=== PATIENT | female | born 1950 | race Caucasian/White ===

== ENCOUNTER → 2017-03-29 | Outpatient (CLI) | payer MEDICARE ==
--- NOTE | 2017-03-29 11:45 | MM ---
Reason for exam: screening (asymptomatic). Last mammogram was performed 1 year and 1 month ago. History: Patient is postmenopausal and is nulliparous. Family history of premenopausal breast cancer in sister at age 40 and breast cancer in maternal aunt at age 70. Took estrogen for 5 years. Took progesterone for 5 years. Taking other hormone for 8 years. Physical Findings: A clinical breast exam by your physician is recommended on an annual basis and results should be correlated with mammographic findings. MG Screening Mammo w CAD Bilateral CC and MLO view(s) were taken. Prior study comparison: March 09, 2016, bilateral MG screening mammo w CAD. February 26, 2014, bilateral MG screening mammo w CAD. The breast tissue is heterogeneously dense. This may lower the sensitivity of mammography. There is no discrete abnormality. ASSESSMENT: Negative, BI-RAD 1 RECOMMENDATION: Routine screening mammogram of both breasts in 1 year.
== END | disposition home or self-care (01) ==
LOC: RADMAMWWP 07:26
PROVIDERS: ATTEND Family Medicine
DX: Z12.31 Encounter for screening mammogram for malignant neoplasm of breast (principal)

== ENCOUNTER → 2017-07-17 | Outpatient (CLI) | payer MEDICARE ==
--- NOTE | 2017-07-17 09:11 | XR ---
EXAMINATION TYPE: XR chest 2V DATE OF EXAM: 07/17/2017 COMPARISON: NONE HISTORY: Shortness of breath TECHNIQUE: Frontal and lateral views of the chest are obtained. FINDINGS: Scattered senescent parenchymal changes noted. Small granuloma right lower lobe. No evidence for infiltrate. No evidence for atelectasis. Heart size is stable. Mediastinal structures are stable and grossly unremarkable. No evidence for hilar prominence. Degenerative changes dorsal spine. IMPRESSION: 1. No evidence for acute pulmonary disease.
== END | disposition home or self-care (01) ==
LOC: RADXRMAIN 08:47
PROVIDERS: ATTEND Family Medicine
DX: R63.4 Abnormal weight loss (principal)
CPT/HCPCS: 71020

== ENCOUNTER → 2018-03-23 | Outpatient (CLI) | payer MEDICARE ==
--- NOTE | 2018-03-23 10:37 | XR ---
EXAMINATION TYPE: XR lumbosacral spine min 4V DATE OF EXAM: 03/23/2018 COMPARISON: NONE HISTORY: Low back pain TECHNIQUE: Five-view lumbar spine FINDINGS: Scoliosis is present with a convexity to the right. Degenerative disc changes are present e specially L2-L3. Facet degenerative changes are present bilaterally. There is some additional disc sp noel narrowing L4-5. IMPRESSION: 1. Degenerative disc changes and scoliosis. 2. Milder facet degenerative changes.
== END | disposition home or self-care (01) ==
LOC: RADXRMAIN 09:33
PROVIDERS: ATTEND Family Medicine
DX: M47.816 Spondylosis without myelopathy or radiculopathy, lumbar region (principal); M41.9 Scoliosis, unspecified
CPT/HCPCS: 72110

== ENCOUNTER → 2018-05-02 | Outpatient (CLI) | payer MEDICARE ==
--- NOTE | 2018-05-03 10:23 | MM ---
Reason for exam: screening (asymptomatic). Last mammogram was performed 1 year and 1 month ago. History: Patient is postmenopausal and is nulliparous. Family history of premenopausal breast cancer in sister at age 40 and breast cancer in maternal aunt at age 70. Took estrogen for 5 years. Took progesterone for 5 years. Taking other hormone for 8 years. Physical Findings: A clinical breast exam by your physician is recommended on an annual basis and results should be correlated with mammographic findings. MG Screening Mammo w CAD Bilateral CC and MLO view(s) were taken. Prior study comparison: March 29, 2017, bilateral MG screening mammo w CAD. March 09, 2016, bilateral MG screening mammo w CAD. There are scattered fibroglandular densities. No suspicious abnormality. No significant changes when compared with prior studies. ASSESSMENT: Negative, BI-RAD 1 RECOMMENDATION: Routine screening mammogram of both breasts in 1 year.
== END | disposition home or self-care (01) ==
LOC: RADMAMWWP 06:53
PROVIDERS: ATTEND Family Medicine
DX: Z12.31 Encounter for screening mammogram for malignant neoplasm of breast (principal)
CPT/HCPCS: 77067

== ENCOUNTER 2018-07-26 17:06 | Emergency (ER) | payer MEDICARE ==
[2018-07-26] MEDS ORDERED: MORPHINE SULFATE 4 MG/ML SYRINGE IVP PRN (17:36)
[2018-07-26] MEDS ORDERED: PROPOFOL 10 MG/ML 20 ML VIAL IV STA (17:39)
--- NOTE | 2018-07-26 17:39 | ED ---
General Adult HPI - General Chief complaint: Extremity Injury, Lower Stated complaint: Hip pain Source: EMS Mode of arrival: EMS Limitations: physical limitation - History of Present Illness Initial comments: Dictation was produced using [employer] dictation software. please excuse any grammatical, word or spelling errors. Chief Complaint: 68-year-old female with past medical history of bilateral total hip replacements presents with concern for right hip dislocation. History of Present Illness: Patient states she has had multiple hip dislocations in the past. She has bilateral hip total replacement done at [facility]. This is allegedly her fifth time dislocating her hip. She is in such therapist earlier today when such therapist put her leg in extreme flexion. She then felt a clunk. She was brought here for further care. Patient denies any constitutional symptoms. ROS negative. Denies any neuro deficits to the right lower extremity. + Patient had her hip reduced propofol was used. Patient has no ALLERGIES to sedation medications. The ROS documented in this emergency department record has been reviewed and confirmed by me. Those systems with pertinent positive or negative responses have been documented in the HPI. All other systems are other negative and/or noncontributory. - Related Data Home Medications Medication Instructions Recorded Confirmed Ibuprofen [Motrin Ib] 400 mg PO Q6HR PRN 07/26/18 07/26/18 Multivitamins, Thera [Multivitamin 1 tab PO DAILY 07/26/18 07/26/18 (formulary)] Thyroid,Pork [Nature-Throid] 32.5 mg PO DAILY 07/26/18 07/26/18 Previous Rx's Medication Instructions Recorded Hydrocodone/Acetaminophen [Meigs 1 tab PO Q6HR PRN 3 Days #12 tab 07/26/18 5-325] Allergies Allergy/AdvReac Type Severity Reaction Status Date / Time No Known Allergies Allergy Verified 07/26/18 17:31 Review of Systems ROS Statement: Those systems with pertinent positive or pertinent negative responses have been documented in the HPI. ROS Other: All systems not noted in ROS Statement are negative. Past Medical History Past Medical History: Thyroid Disorder Additional Past Medical History / Comment(s): congential hip displaysia History of Any Multi-Drug Resistant Organisms: None Reported Additional Past Surgical History / Comment(s): thyroid removal, both hip replacement Past Psychological History: No Psychological Hx Reported Smoking Status: Never smoker Past Alcohol Use History: None Reported Past Drug Use History: None Reported General Exam - General Exam Comments Initial Comments: PHYSICAL EXAM: General Impression: Alert and oriented x3, not in acute distress HEENT: Normocephalic atraumatic, extra-ocular movements intact, pupils equal and reactive to light bilaterally, mucous membranes moist. Cardiovascular: Heart regular rate and rhythm, S1&S2 audible, no murmurs, rubs or gallops Chest: Lungs clear to auscultation bilaterally, no rhonchi, no wheeze, no rales Abdomen: Bowel sounds present, abdomen soft, non-tender, non-distended, no organomegaly Musculoskeletal: Pulses present and equal in all extremities, no peripheral edema, shortened externally rotated right lower extremity. Motor: Power 5/5 bilaterally, no focal deficits noted Neurological: CN II-XII grossly intact, no focal motor or sensory deficits noted Skin: Intact with no visualized rashes Psych: Normal affect and mood Limitations: physical limitation Course Vital Signs 07/26/18 07/26/18 07/26/18 17:07 18:56 18:59 Temperature 97.9 F Pulse Rate 92 80 89 Respiratory 18 18 19 Rate Blood Pressure 130/77 136/84 138/89 O2 Sat by Pulse 97 96 100 Oximetry 07/26/18 19:02 Temperature Pulse Rate 77 Respiratory 20 Rate Blood Pressure 139/83 O2 Sat by Pulse 97 Oximetry Procedures - Orthopedic Joint Reduction Joint #1 Consent Obtained: written consent Time Out Performed: Yes Side: right Joint Reduction Location: hip Analgesia: procedural sedation Shoulder Technique Used (if applicable): other (captain parson) Post-Reduction Neuro Exam: intact Post-Reduction Vascular Exam: intact Post Reduction X-Ray Obtained: Yes Post Reduction X-Ray Results: reduced Splint Applied: Yes Patient Tolerated Procedure: well - Procedural Sedation Procedural Sedation Start Time: 18:59 Procedural Sedation Stop Time: 19:10 Indications: fracture/dislocation reduction ASA Class: I Mallampati Airway Score: 1 Preparation: monitor worker applied, pulse oximeter, capnometry used, supplemental O2 applied, suction/airway equipment at bedside, IV secured IV Propofol Dose (mgs): 100 Complications: hypoventilation Interventions: oxygen applied, airway repositioned, assist by BVM Patient Tolerated Procedure: well Medical Decision Making - Medical Decision Making ED course: 68-year-old failed presents with clinical presentation suspicious for right hip dislocation. All signs upon arrival are within acceptable limits. Patient has recurrent hip dislocations. Prereduction film shows posterior dislocation of surgical hip. Full consent performed for dislocation reduction. Patient has had propofol in the past per she is Mallampati 1. No adverse reactions in the past to sedate of medications. Successful reduction was performed at bedside. Postreduction films were intact. Shows successful reduction. Patient recently immobilized. She is warned of certain movements to avoid. Told not to flex the hip more than 90. Told not to cross her legs or internally rotate that right lower extremity. Patient has a walker at home. She is told to be toe-touch weightbearing. Advised follow-up with her with a surgeon as soon as possible. Patient understandable agreeable to plan. Patient states that she'll be just fine. I bedside. Patient will follow up with orthopedic surgeon tomorrow. Patient understandable agreeable to disposition. - Lab Data Result diagrams: 07/26/18 17:40 07/26/18 17:40 Lab Results 07/26/18 07/26/18 Range/Units 17:40 17:40 WBC 9.6 (3.8-10.6) k/uL RBC 4.32 (3.80-5.40) m/uL Hgb 13.8 (11.4-16.0) gm/dL Hct 40.2 (34.0-46.0) % MCV 93.0 (80.0-100.0) fL MCH 32.0 (25.0-35.0) pg MCHC 34.4 (31.0-37.0) g/dL RDW 12.8 (11.5-15.5) % Plt Count 225 (150-450) k/uL Neutrophils % 79 % Lymphocytes % 14 % Monocytes % 5 % Eosinophils % 1 % Basophils % 0 % Neutrophils # 7.5 (1.3-7.7) k/uL Lymphocytes # 1.4 (1.0-4.8) k/uL Monocytes # 0.5 (0-1.0) k/uL Eosinophils # 0.1 (0-0.7) k/uL Basophils # 0.0 (0-0.2) k/uL Sodium 138 (137-145) mmol/L Potassium 3.7 (3.5-5.1) mmol/L Chloride 104 (98-107) mmol/L Carbon Dioxide 25 (22-30) mmol/L Anion Gap 9 mmol/L BUN 23 H (7-17) mg/dL Creatinine 0.70 (0.52-1.04) mg/dL Est GFR (CKD-EPI)AfAm >90 (>60 ml/min/1.73 sqM) Est GFR (CKD-EPI)NonAf 88 (>60 ml/min/1.73 sqM) Glucose 115 H (74-99) mg/dL Calcium 9.1 (8.4-10.2) mg/dL Disposition Clinical Impression: Dislocation of hip prosthesis Disposition: HOME SELF-CARE Condition: Good Instructions: Hip Dislocation (ED) Prescriptions: Hydrocodone/Acetaminophen [Meigs 5-325] 1 tab PO Q6HR PRN 3 Days #12 tab PRN Reason: Pain Is patient prescribed a controlled substance at d/c from ED?: Yes If prescribed controlled substance>3 days was MAPS reviewed?: Prescribed <3 Days Referrals: Dilip Neil DO [Primary Care Provider] - 1-2 days Time of Disposition: 19:58
[2018-07-26 17:59] LABS: Basophils % (A) 0 %; Eosinophils # (A) 0.1 k/uL (0-0.7); Eosinophils % (A) 1 %; HCT 40.2 % (34.0-46.0); HGB 13.8 gm/dL (11.4-16.0); Lymphocytes # (A) 1.4 k/uL (1.0-4.8); Lymphocytes % (A) 14 %; MCHC 34.4 g/dL (31.0-37.0); Mean Platelet Volume 6.7; Monocytes # (A) 0.5 k/uL (0-1.0); Monocytes % (A) 5 %; Neutrophils # (A) 7.5 k/uL (1.3-7.7); Neutrophils % (A) 79 %; Platelet Count 225 k/uL (150-450); RBC 4.32 m/uL (3.80-5.40); RDW 12.8 % (11.5-15.5); WBC 9.6 k/uL (3.8-10.6)
[2018-07-26] MEDS ORDERED: fentaNYL (PF) 50 MCG/ML 2 ML AMP IVP STA (18:06)
[2018-07-26 18:17] LABS: Anion Gap 9 mmol/L; Blood Urea Nitrogen 23 mg/dL (7-17); Calcium 9.1 mg/dL (8.4-10.2); Carbon Dioxide 25 mmol/L (22-30); Chloride 104 mmol/L (98-107); Glucose 115 mg/dL (74-99); Potassium 3.7 mmol/L (3.5-5.1); Sodium 138 mmol/L (137-145)
[2018-07-26] MEDS ORDERED: ONDANSETRON 4 MG/2 ML VIAL IVP STA ×2 (18:46→19:59)
--- NOTE | 2018-07-26 19:32 | XR ---
EXAMINATION TYPE: XR Hip RT and AP Pelvis DATE OF EXAM: 07/26/2018 COMPARISON: NONE HISTORY: Pain TECHNIQUE: A single AP view of the pelvis is obtained. Two views of the right hip are obtained. FINDINGS: There is dislocation of the prosthetic right femoral head superiorly. The pelvic ring is in tact. There is bilateral hip prosthesis. Sacroiliac joints appear intact. IMPRESSION: Dislocated right hip prosthesis. No fracture seen.
--- NOTE | 2018-07-26 19:41 | XR ---
EXAMINATION TYPE: XR Hip Limited RT DATE OF EXAM: 07/26/2018 COMPARISON: Today HISTORY: Postreduction TECHNIQUE: Single view FINDINGS: There is anatomic reduction of the prosthetic femoral head. IMPRESSION: Anatomic reduction. No fracture seen.
[2018-07-26 20:23] VITALS: BP 139/72; PULSE 76; RESP 18
[2018-07-26 20:51] VITALS: TEMP 97.8
== END 2018-07-26 20:29 | disposition home or self-care (01) ==
LOC: EC 17:06
DX: T84.020A Dislocation of internal right hip prosthesis, initial encounter (principal); E07.9 Disorder of thyroid, unspecified; Z79.899 Other long term (current) drug therapy; Z87.76 Personal history of (corrected) congenital malformations of integument, limbs and musculoskeletal system; Z96.643 Presence of artificial hip joint, bilateral; Y79.2 Prosthetic and other implants, materials and accessory orthopedic devices associated with adverse incidents
CPT/HCPCS: 36415; 80048; 85025; 73501; 73502; 99284; 27265; 99152; 96374; 96375; 96376; L1830; J2405; J3010; J2704

== ENCOUNTER 2019-04-11 13:51 | Emergency (ER) | payer MEDICARE ==
[2019-04-11 14:04] VITALS: BP 134/83; PULSE 88; RESP 18; TEMP 98.5
--- NOTE | 2019-04-11 14:48 | XR ---
EXAMINATION TYPE: XR Hip Complete LT DATE OF EXAM: 04/11/2019 CLINICAL HISTORY: Left hip pain and osteoarthritis. TECHNIQUE: Single AP portable view of left hip is obtained. COMPARISON: None. FINDINGS: Metallic hardware from left hip arthroplasty is seen and appears satisfactory in alignment and position. There is mild diffuse osseous demineralization. No periprosthetic lucency is seen to scott ggest loosening. No acute fracture of the left pelvis as visualized are femur is seen. IMPRESSION: Metallic hardware from left hip arthroplasty is satisfactory in position.
--- NOTE | 2019-04-11 14:51 | XR ---
EXAMINATION TYPE: XR lumbar spine 2 or 3V DATE OF EXAM: 04/11/2019 COMPARISON: NONE HISTORY: 68-year-old female left hip and low back pain, radicular pain TECHNIQUE: 3 views FINDINGS: Degenerated dextroconvex scoliosis redemonstrated. Facet arthropathy mid to lower lumbar spine. Moder ate degenerative disc disease and endplate spondylosis throughout. Grade 1 retrolistheses at L1-L4 levels. Vertebral body heights are preserved. IMPRESSION: Degenerated dextroconvex scoliosis. Facet arthropathy throughout with grade 1 retrolisthesis from L1 through L4 levels. Moderate multilevel degenerative disc disease. No vertebral compression collapse.
--- NOTE | 2019-04-11 15:24 | ED ---
Extremity Problem HPI - General Chief complaint: Extremity Problem,Nontraumatic Stated complaint: Leg pain Time Seen by Provider: 04/11/19 14:04 Source: patient Mode of arrival: ambulatory Limitations: no limitations - History of Present Illness Initial comments: 68-year-old female history of bilateral hip prosthesis, low back pain chronically presents today for chief complaint of sharp shooting pain down the left leg. Patient states she occasionally she has sharp shooting pain down her left anterior leg. Patient states increased in certain positions. Patient states she has had steroids orally which seemed a make her feel better but did not alleviate the pain. Patient denies fever or chills night sweats IV drug use history of cancer. Patient denies a loss sensation lower extremity. Denies loss of bowel bladder control urinary retention. Patient states her legs are strong and are not weak. Denies leg swelling. Posterior leg pain or hip pain. Denies history DVT/PE. Remaining review of systems negative upon arrival patient appearing well denies any current symptoms. - Related Data Home Medications Medication Instructions Recorded Confirmed Ibuprofen [Motrin Ib] 400 mg PO Q6HR PRN 07/26/18 07/26/18 Multivitamins, Thera [Multivitamin 1 tab PO DAILY 07/26/18 07/26/18 (formulary)] Thyroid,Pork [Nature-Throid] 32.5 mg PO DAILY 07/26/18 07/26/18 Previous Rx's Medication Instructions Recorded Hydrocodone/Acetaminophen [Hunter 1 tab PO Q6HR PRN 3 Days #12 tab 07/26/18 5-325] Cyclobenzaprine [Flexeril] 10 mg PO TID 7 Days #21 tab 04/11/19 Allergies Allergy/AdvReac Type Severity Reaction Status Date / Time No Known Allergies Allergy Verified 04/11/19 14:04 Review of Systems ROS Statement: Those systems with pertinent positive or pertinent negative responses have been documented in the HPI. ROS Other: All systems not noted in ROS Statement are negative. Past Medical History Past Medical History: Thyroid Disorder Additional Past Medical History / Comment(s): congential hip displaysia History of Any Multi-Drug Resistant Organisms: None Reported Past Surgical History: Joint Replacement Additional Past Surgical History / Comment(s): thyroid removal, both hip replacement Past Psychological History: No Psychological Hx Reported Smoking Status: Never smoker Past Alcohol Use History: None Reported Past Drug Use History: None Reported General Exam - General Exam Comments Initial Comments: General: The patient is awake and alert, in no distress, and does not appear acutely ill. Eye: Pupils are equal, round and reactive to light, extra-ocular movements are intact. No nystagmus. There is normal conjunctiva bilaterally. No signs of icterus. Ears, nose, mouth and throat: There are moist mucous membranes and no oral lesions. Neck: The neck is supple, there is no tenderness or JVD. Cardiovascular: There is a regular rate and rhythm. No murmur, rub or gallop is appreciated. Respiratory: Lungs are clear to auscultation, respirations are non-labored, breath sounds are equal. No wheezes, stridor, rales, or rhonchi. Gastrointestinal: [Soft, non-distended, non-tender abdomen without masses or organomegaly noted. There is no rebound or guarding present. No CVA tenderness. Bowel sounds are unremarkable.] Musculoskeletal: Normal ROM, no tenderness. Strength 5/5. Sensation intact. Pulses equal bilaterally 2+. Neurological: A&O x 3. CN II-XII intact, There are no obvious motor or sensory deficits. Coordination appears grossly intact. Speech is normal. Skin: Skin is warm and dry and no rashes or lesions are noted. Psychiatric: Cooperative, appropriate mood & affect, normal judgment. Limitations: no limitations Course Vital Signs 04/11/19 13:59 Temperature 98.5 F Pulse Rate 88 Respiratory 18 Rate Blood Pressure 134/83 O2 Sat by Pulse 99 Oximetry Medical Decision Making - Medical Decision Making 68-year-old female presenting for sharp shooting pain occasionally down the left leg. History of degenerative changes of the lumbar spine. Patient denies any recent falls or trauma. Patient denies any alarming features on history taking. Patient is neurovascularly intact on examination. No clinical history or his examination findings consistent with cauda equina. Patient's symptoms are radicular in nature. Imaging snake studies are negative for acute osseous process. Degenerative changes noted. Hip prosthesis. Intact no acute findings. At this time the patient would benefit from muscle relaxant as well as NSAIDs. Patient is to follow-up with orthopedic surgery. Did recommend physical therapy. She is agreeable care plan discharge at this time. Return parameters were discussed. Patient verbalized understanding. Patient was monitored in person by my attending provider Dr. Santo Disposition Clinical Impression: Radiculopathy, Lumbar radiculopathy Disposition: HOME SELF-CARE Condition: Good Instructions (If sedation given, give patient instructions): Lumbar Radiculopathy (ED) Additional Instructions: Please use medication as discussed. Please follow-up with family doctor in the next 2 days. Please return to emergency room if the symptoms increase or worsen or for any other concerns. Prescriptions: Cyclobenzaprine [Flexeril] 10 mg PO TID 7 Days #21 tab Is patient prescribed a controlled substance at d/c from ED?: No Referrals: Dilip Neil DO [Primary Care Provider] - 1-2 days Gabriel Arias DO [Doctor of Osteopathic Medicine] - 1-2 days Time of Disposition: 15:23
== END 2019-04-11 15:43 | disposition home or self-care (01) ==
LOC: EC 13:51
DX: M54.16 Radiculopathy, lumbar region (principal); E07.9 Disorder of thyroid, unspecified; Z79.890 Hormone replacement therapy; Z96.643 Presence of artificial hip joint, bilateral
CPT/HCPCS: 72100; 73502; 99283

== ENCOUNTER → 2019-05-03 | Outpatient (CLI) | payer MEDICARE ==
--- NOTE | 2019-05-06 09:58 | MM ---
Reason for exam: screening (asymptomatic). Last mammogram was performed 1 year ago. History: Patient is postmenopausal and is nulliparous. Family history of premenopausal breast cancer in sister at age 40 and breast cancer in maternal aunt at age 70. Took estrogen for 5 years. Took progesterone for 5 years. Taking other hormone for 8 years. Physical Findings: A clinical breast exam by your physician is recommended on an annual basis and results should be correlated with mammographic findings. MG 3D Screening Mammo W/Cad Bilateral CC and MLO view(s) were taken. Prior study comparison: May 02, 2018, bilateral MG screening mammo w CAD. March 29, 2017, bilateral MG screening mammo w CAD. The breast tissue is heterogeneously dense. This may lower the sensitivity of mammography. There is no discrete abnormality. No significant changes when compared with prior studies. ASSESSMENT: Negative, BI-RAD 1 RECOMMENDATION: Routine screening mammogram of both breasts in 1 year.
== END | disposition home or self-care (01) ==
LOC: RADMAMWWP 07:49
PROVIDERS: ATTEND Family Medicine
DX: Z12.31 Encounter for screening mammogram for malignant neoplasm of breast (principal)
CPT/HCPCS: 77063; 77067

== ENCOUNTER → 2020-02-18 | Outpatient (CLI) | payer MEDICARE | END | disposition home or self-care (01) | LOC: LABWHC1 12:18 | PROVIDERS: ATTEND Surgery Plastic and Reconstructive Surgery | DX: U07.1 COVID-19 (principal) | CPT/HCPCS: 87635 ==

== ENCOUNTER 2020-02-20 10:27 | Day surgery (SDC) | payer MEDICARE ==
[~2020-02-20 10:27] MED LIST: LACTATED RINGERS 1,000 ML IV SCH
[2020-02-20] MEDS ORDERED: LIDOCAINE 1% (10MG/ML) FOR IV START INTRADERMA ONE (10:56)
[2020-02-20 10:59] VITALS: TEMP 97.3
[2020-02-20] MEDS ORDERED: PROPOFOL 10 MG/ML 20 ML VIAL IV ONE (11:11)
--- NOTE | 2020-02-20 11:45 | P.GSHP ---
History of Present Illness H&P Date: 02/20/20 CHIEF COMPLAINT: Trouble swallowing HISTORY OF PRESENT ILLNESS: The patient is a 69-year-old female who presents with trouble swallowing. Upper endoscopy was offered for further evaluation and management. PAST MEDICAL HISTORY: Please see list. PAST SURGICAL HISTORY: Please see list. MEDICATIONS: Please see list. ALLERGIES: Please see list. SOCIAL HISTORY: No illicit drug use FAMILY HISTORY: No reports of Crohn disease or ulcerative colitis. REVIEW OF ORGAN SYSTEMS: CONSTITUTIONAL: No reports of fevers or chills. GI: Denies any blood in stools or constipation. PHYSICAL EXAM: VITAL SIGNS: Stable GENERAL: Well-developed and pleasant in no acute distress. HEENT: No scleral icterus. Extraocular movements grossly intact. Moist buccal mucosa. NECK: Supple without lymphadenopathy. CHEST: Unlabored respirations. Equal bilateral excursions. CARDIOVASCULAR: Regular rate and rhythm. Distal 2+ pulses. ABDOMEN: Soft, nondistended. MUSCULOSKELETAL: No clubbing, cyanosis, or edema. ASSESSMENT: 1. Dysphagia PLAN: 1. Recommend proceeding with an upper endoscopy Past Medical History Past Medical History: Thyroid Disorder Additional Past Medical History / Comment(s): congential hip displaysia. UPPER GI PAIN History of Any Multi-Drug Resistant Organisms: None Reported Past Surgical History: Joint Replacement Additional Past Surgical History / Comment(s): 1/2 thyroid removal, both hip replacement Past Anesthesia/Blood Transfusion Reactions: No Reported Reaction Smoking Status: Never smoker - Past Family History Sister(s) Family Medical History: Cancer Additional Family Medical History / Comment(s): BOTH SISTERS HAD BREAST CANCER Brother(s) Family Medical History: Cancer Additional Family Medical History / Comment(s): LUNG Medications and Allergies Home Medications Medication Instructions Recorded Confirmed Type Multivitamins, Thera [Multivitamin 1 tab PO DAILY 07/26/18 02/20/20 History (formulary)] Thyroid,Pork [Nature-Throid] 32.5 mg PO DAILY 07/26/18 02/20/20 History Omeprazole [PriLOSEC] 02/20/20 History Allergies Allergy/AdvReac Type Severity Reaction Status Date / Time No Known Allergies Allergy Verified 02/20/20 10:42 Surgical - Exam Vital Signs Temp Pulse Resp BP Pulse Ox 97.3 F L 88 18 132/85 99 02/20/20 10:55 02/20/20 10:55 02/20/20 10:55 02/20/20 10:55 02/20/20 10:55
--- NOTE | 2020-02-20 11:47 | P.PCN ---
Date of Procedure: 02/20/20 Description of Procedure: PREOPERATIVE DIAGNOSIS: Dysphagia POSTOPERATIVE DIAGNOSIS: Gastritis. Gastroesophageal reflux disease with bile reflux Diaphragmatic hiatal hernia OPERATION: Esophagogastroduodenoscopy with biopsies along antrum. SURGEON: Smita Coyne MD ANESTHESIA: MAC. INDICATIONS: The patient is a 69-year-old female who presents with trouble swallowing. Benefits and risks of the procedure were described. Informed consent was obtained. DESCRIPTION: The patient was brought into the endoscopy suite and laid in the left lateral decubitus position. An Olympus gastroscope was passed along the posterior oropharynx down to the distal esophagus where the squamocolumnar junction was encountered at 40 cm from the incisors. The stomach was entered and no bile reflux was found. Additional findings are listed below. Biopsies with cold forceps were obtained of the antrum. The first through third portion of the duodenum was examined and unremarkable. Retroflexion of the scope confirmed Hill grade 3 lower esophageal valve. The squamocolumnar junction demonstrated LA grade B erosive esophagitis. The stomach was desufflated. The patient tolerated the procedure well. FINDINGS: Squamocolumnar junction 37 cm from the incisors. Diaphragmatic hiatus at 40 cm. Hiatal hernia, 3 cm Hill grade 3 lower esophageal valve. LA grade B erosive esophagitis. No active duodenitis. Chronic gastritis with bile reflux RECOMMENDATIONS: Upper endoscopy as needed. Plan - Discharge Summary Discharge Rx Participant: No New Discharge Prescriptions: Continue Thyroid,Pork [Nature-Throid] 32.5 mg PO DAILY Multivitamins, Thera [Multivitamin (formulary)] 1 tab PO DAILY Omeprazole [PriLOSEC] Discharge Medication List Multivitamins, Thera [Multivitamin (formulary)] 1 tab PO DAILY 07/26/18 [History] Thyroid,Pork [Nature-Throid] 32.5 mg PO DAILY 07/26/18 [History] Omeprazole [PriLOSEC] 02/20/20 [History] Follow up Appointment(s)/Referral(s): Smita Coyne MD [STAFF PHYSICIAN] - 03/03/20 (Telemedicine) Patient Instructions/Handouts: Hiatal Hernia (DC) Discharge Disposition: HOME SELF-CARE
[2020-02-20 11:56] VITALS: BP 125/81; PULSE 70; RESP 16
== END 2020-02-20 12:40 | disposition home or self-care (01) ==
LOC: ORWHC2ENDO 10:27
PROVIDERS: ATTEND Surgery Plastic and Reconstructive Surgery
DX: K29.50 Unspecified chronic gastritis without bleeding (principal); K44.9 Diaphragmatic hernia without obstruction or gangrene; K21.0 Gastro-esophageal reflux disease with esophagitis; K22.10 Ulcer of esophagus without bleeding; E89.0 Postprocedural hypothyroidism; Z79.890 Hormone replacement therapy; Z79.899 Other long term (current) drug therapy; Z96.643 Presence of artificial hip joint, bilateral; Z87.76 Personal history of (corrected) congenital malformations of integument, limbs and musculoskeletal system; Z80.3 Family history of malignant neoplasm of breast; Z80.1 Family history of malignant neoplasm of trachea, bronchus and lung
CPT/HCPCS: 88305; 43239; J2704

== ENCOUNTER → 2020-03-16 | Outpatient (CLI) | payer MEDICARE | END | disposition home or self-care (01) | LOC: LABWHC1 15:15 | PROVIDERS: ATTEND Surgery Plastic and Reconstructive Surgery | DX: Z53.9 Procedure and treatment not carried out, unspecified reason (principal) ==

== ENCOUNTER 2020-03-19 08:10 | Day surgery (SDC) | payer MEDICARE ==
[2020-03-18 08:53] VITALS: BMI 20.2
--- NOTE | 2020-03-18 19:51 | P.GSHP ---
History of Present Illness H&P Date: 03/19/20 CHIEF COMPLAINT: Colon screen HISTORY OF PRESENT ILLNESS: The patient is a 69-year-old female who presents for colon screen. Lower endoscopy was offered for further evaluation and management. PAST MEDICAL HISTORY: Please see list. PAST SURGICAL HISTORY: Please see list. MEDICATIONS: Please see list. ALLERGIES: Please see list. SOCIAL HISTORY: No illicit drug use FAMILY HISTORY: No reports of Crohn disease or ulcerative colitis. REVIEW OF ORGAN SYSTEMS: CONSTITUTIONAL: No reports of fevers or chills. PHYSICAL EXAM: VITAL SIGNS: Stable GENERAL: Well-developed pleasant in no acute distress. HEENT: No scleral icterus. Extraocular movements grossly intact. Moist buccal mucosa. NECK: Supple without lymphadenopathy. CHEST: Unlabored respirations. Equal bilateral excursions. CARDIOVASCULAR: Regular rate and rhythm. Distal 2+ pulses. ABDOMEN: Soft, nontender, nondistended. MUSCULOSKELETAL: No clubbing, cyanosis, or edema. ASSESSMENT: 1. Colon screen. PLAN: 1. Recommend proceeding with a lower endoscopy Past Medical History Past Medical History: Thyroid Disorder Additional Past Medical History / Comment(s): congential hip dysplasia, hiatal hernia History of Any Multi-Drug Resistant Organisms: None Reported Past Surgical History: Joint Replacement Additional Past Surgical History / Comment(s): EGD, partial thyroid removal, kyra hip replacement Past Anesthesia/Blood Transfusion Reactions: No Reported Reaction Smoking Status: Never smoker - Past Family History Sister(s) Family Medical History: Cancer Additional Family Medical History / Comment(s): BOTH SISTERS HAD BREAST CANCER Brother(s) Family Medical History: Cancer Additional Family Medical History / Comment(s): LUNG Medications and Allergies Home Medications Medication Instructions Recorded Confirmed Type Multivitamins, Thera [Multivitamin 1 tab PO DAILY 07/26/18 03/18/20 History (formulary)] Thyroid,Pork [Nature-Throid] 32.5 mg PO DAILY 07/26/18 03/18/20 History Omeprazole [PriLOSEC] 40 mg PO DAILY 02/20/20 03/18/20 History Allergies Allergy/AdvReac Type Severity Reaction Status Date / Time No Known Allergies Allergy Verified 03/18/20 08:33
[2020-03-19 08:29] VITALS: TEMP 97.9
[2020-03-19] MEDS ORDERED: PROPOFOL 10 MG/ML 20 ML VIAL IV ONE (09:03)
[2020-03-19] MEDS ORDERED: LIDOCAINE 1% INJ 10MG/ML (20 ML MDV) ONE (09:03)
[2020-03-19 09:28] VITALS: RESP 16
--- NOTE | 2020-03-19 09:35 | P.HPADDEND ---
H&P Addendum H&P Addendum Date: 03/19/20 Patient reports change in bowel habits. Also reports diffuse abdominal pain. We'll proceed with lower endoscopy and biopsy
--- NOTE | 2020-03-19 09:42 | P.PCN ---
Date of Procedure: 03/19/20 Description of Procedure: PREOPERATIVE DIAGNOSIS: Change in bowel habits Diffuse abdominal pain POSTOPERATIVE DIAGNOSIS: Change in bowel habits Diffuse abdominal pain OPERATION: Colonoscopy to the ileocecal valve and appendiceal orifice. Colonoscopy with random colon biopsies with cold forceps for colitis SURGEON: Smita Coyne MD. ANESTHESIA: MAC. INDICATIONS: The patient is a 69-year-old female who presents with change in bowel habits including abdominal pain. Colonoscopy offered for diagnostic assessment. Benefits and risks were described and informed consent was obtained. DESCRIPTION OF PROCEDURE: The patient had undergone Suprep. She had been brought into the operating room and laid in the left lateral decubitus position. After adequate intravenous sedation, the rectum was examined with 2% lidocaine jelly. External hemorrhoids were encountered. The rectal tone was within normal limits. No lesions were palpated in the rectal vault. An adult colonoscope was inserted however at the sigmoid colon, a mechanical stricture was identified. The scope was exchanged for a pediatric colonoscope. An Olympus colonoscope was advanced until the ileocecal valve and appendiceal orifice were clearly viewed. The prep was excellent with clear visualization of the mucosal folds. The scope was removed with visualization of each mucosal fold. No scattered diverticulosis was encountered. No colonic polyps were found. Random biopsies with cold forceps obtained throughout the colon to evaluate for microscopic colitis. Retroflexion of the scope demonstrated grade 2 internal hemorrhoids without active bleeding or inflammation. The colon was desufflated. The patient had tolerated the procedure well. Withdrawal time was over 6 minutes. FINDINGS: Aronchick preparation quality scale 1 (1-5) Internal hemorrhoids, grade 2 External prolapsed hemorrhoids, grade 2 No arteriovenous malformations. No adenomatous polyps. Sigmoid stricture requiring pediatric colonoscope for advancement Random cold forceps biopsies obtained for microscopic colitis RECOMMENDATIONS: Lower endoscopy in 10 years, [address] of the abdomen and pelvis for additional abdominal pain workup May also benefit from food ALLERGY screening Plan - Discharge Summary Discharge Rx Participant: No New Discharge Prescriptions: Continue Thyroid,Pork [Nature-Throid] 32.5 mg PO DAILY Multivitamins, Thera [Multivitamin (formulary)] 1 tab PO DAILY Omeprazole [PriLOSEC] 40 mg PO DAILY Discharge Medication List Multivitamins, Thera [Multivitamin (formulary)] 1 tab PO DAILY 07/26/18 [History] Thyroid,Pork [Nature-Throid] 32.5 mg PO DAILY 07/26/18 [History] Omeprazole [PriLOSEC] 40 mg PO DAILY 02/20/20 [History] Follow up Appointment(s)/Referral(s): Smita Coyne MD [STAFF PHYSICIAN] - 03/31/20 Patient Instructions/Handouts: *Surgery [facility] - (Anesthesia) Endoscopy Discharge Instructions, Hemorrhoids (DC), Colonoscopy (DC) Activity/Diet/Wound Care/Special Instructions: Repeat colonoscopy 10 years, 2029 Discharge Disposition: HOME SELF-CARE
[2020-03-19 09:43] VITALS: BP 119/77; PULSE 75
== END 2020-03-19 10:04 | disposition home or self-care (01) ==
LOC: ORWHC2ENDO 08:10
PROVIDERS: ATTEND Surgery Plastic and Reconstructive Surgery
DX: K64.1 Second degree hemorrhoids (principal); K64.4 Residual hemorrhoidal skin tags; K56.699 Other intestinal obstruction unspecified as to partial versus complete obstruction; K21.9 Gastro-esophageal reflux disease without esophagitis; Q65.89 Other specified congenital deformities of hip; E07.9 Disorder of thyroid, unspecified; Z79.890 Hormone replacement therapy; Z79.899 Other long term (current) drug therapy; Z96.643 Presence of artificial hip joint, bilateral; Z80.1 Family history of malignant neoplasm of trachea, bronchus and lung; Z80.3 Family history of malignant neoplasm of breast
CPT/HCPCS: 88305; 45380; J2001; J2704

== ENCOUNTER → 2021-06-07 | Outpatient (CLI) | payer MEDICARE ==
--- NOTE | 2021-06-08 09:21 | MM ---
Reason for exam: screening (asymptomatic). Last mammogram was performed 2 years and 1 month ago. History: Patient is postmenopausal and is nulliparous. Family history of premenopausal breast cancer in sister at age 40 and breast cancer in maternal aunt at age 70. Took estrogen for 5 years. Took progesterone for 5 years. Taking other hormone for 8 years. Physical Findings: A clinical breast exam by your physician is recommended on an annual basis and results should be correlated with mammographic findings. MG Screening Mammo w CAD Bilateral CC and MLO view(s) were taken. Prior study comparison: May 03, 2019, bilateral MG 3d screening mammo w/cad. May 02, 2018, bilateral MG screening mammo w CAD. The breast tissue is heterogeneously dense. This may lower the sensitivity of mammography. No significant changes when compared with prior studies. ASSESSMENT: Benign, BI-RAD 2 RECOMMENDATION: Routine screening mammogram of both breasts in 1 year.
== END | disposition home or self-care (01) ==
LOC: RADMAMWWP 08:08
PROVIDERS: ATTEND Family Medicine
DX: Z12.31 Encounter for screening mammogram for malignant neoplasm of breast (principal); Z80.3 Family history of malignant neoplasm of breast
CPT/HCPCS: 77067

== ENCOUNTER → 2021-06-18 | Outpatient (CLI) | payer MEDICARE ==
--- NOTE | 2021-06-18 14:08 | XR ---
EXAMINATION TYPE: XR knee complete RT DATE OF EXAM: 06/18/2021 CLINICAL HISTORY: pain TECHNIQUE: Three views of the right knee are obtained. COMPARISON: None. FINDINGS: There is no acute fracture/dislocation. The tri-compartment joint spaces appear moderatel y narrowed at the medial tibiofemoral joint space. The overlying soft tissue appears unremarkable. Sm all suprapatellar joint effusion. IMPRESSION: There is no acute fracture or dislocation.ICD 10 NO FRACTURE, INITIAL EVALUATION
== END | disposition home or self-care (01) ==
LOC: RADXRMAIN 13:26
PROVIDERS: ATTEND Family Medicine
DX: M25.561 Pain in right knee (principal)

== ENCOUNTER → 2021-10-06 | Outpatient (CLI) | payer MEDICARE ==
--- NOTE | 2021-10-07 03:07 | MR ---
EXAMINATION TYPE: MR knee RT wo/w con DATE OF EXAM: 10/06/2021 COMPARISON: None HISTORY: Pain of right knee region CONTRAST: Standard multiplanar, multisequence MRI departmental protocol images were obtained without contrast a nd with 5.5 mL intravenous Gadavist gadolinium contrast. There is knee joint effusion. The anterior and posterior cruciate ligaments are intact. Patella tendo n is intact. Collateral ligaments appear intact. The medial and lateral menisci show fairly normal si gnal pattern. There is very slight increased signal within the substance of the posterior horn medial meniscus without extension to the articular surface. There is no evidence of a fracture. There is no bone edema. There is no evidence of soft tissue mass. IMPRESSION: Degenerative signal changes within the posterior horn medial meniscus. Moderate knee joint effusion c onsistent with some nonspecific synovitis. No evidence of ligamentous tear. No fracture.
== END | disposition home or self-care (01) ==
LOC: RADMRIMAIN 20:30
PROVIDERS: ATTEND Family Medicine
DX: M25.461 Effusion, right knee (principal)
CPT/HCPCS: 73723; A9585

== ENCOUNTER → 2021-11-19 | Outpatient (CLI) | payer MEDICARE ==
[2021-11-19 15:16] LABS: Basophils # (A) 0.03 X 10*3/uL (0.00-0.10); Basophils % (A) 0.5 %; Eosinophils # (A) 0.08 X 10*3/uL (0.04-0.35); Eosinophils % (A) 1.3 %; HCT 44.5 % (37.2-46.3); HGB 14.3 g/dL (12.0-15.0); Lymphocytes # (A) 1.33 X 10*3/uL (0.90-5.00); Lymphocytes % (A) 21.5 %; MCHC 32.1 g/dL (32.0-37.0); MCV 96.3 fL (80.0-97.0); Mean Platelet Volume 10.2 fL (9.5-12.2); Monocytes # (A) 0.52 X 10*3/uL (0.20-1.00); Monocytes % (A) 8.4 %; Neutrophils # (A) 4.21 X 10*3/uL (1.80-7.70); Neutrophils % (A) 68.1 %; Platelet Count 260 X 10*3/uL (140-440); RBC 4.62 X 10*6/uL (4.10-5.20); RDW 13.1 % (11.5-14.5); WBC 6.18 X 10*3/uL (4.50-10.00)
[2021-11-19 15:29] LABS: Anion Gap 11.1 mmol/L (10.00-18.00); Carbon Dioxide 25.8 mmol/L (20.0-27.5); Potassium 3.9 mmol/L (3.5-5.5)
== END | disposition home or self-care (01) ==
LOC: LABPAT 08:57
PROVIDERS: ATTEND Orthopaedic Surgery
DX: Z01.812 Encounter for preprocedural laboratory examination (principal); Z01.810 Encounter for preprocedural cardiovascular examination; M23.91 Unspecified internal derangement of right knee
CPT/HCPCS: 36415; 80051; 85025; 93005

== ENCOUNTER 2021-12-02 05:41 | Day surgery (SDC) | payer MEDICARE ==
[2021-11-30 13:33] VITALS: BMI 20.1
--- NOTE | 2021-12-01 19:58 | HP ---
HISTORY AND PHYSICAL REASON FOR ADMISSION: Surgery scheduled for 12/02/2021 HISTORY OF PRESENT ILLNESS: Judy Carrington is a 71-year-old patient seen with progressive right knee pain. We discussed options for treatment. She elected to proceed with right knee arthroscopy. Consent was obtained. PAST MEDICAL HISTORY: Hypothyroidism. PAST SURGICAL HISTORY: Bilateral total hip arthroplasty. DAILY MEDICATIONS: Levothyroxine. ALLERGIES: None. SOCIAL HISTORY: She denies tobacco use. PHYSICAL EVALUATION OF THE RIGHT KNEE: Range of motion zero to 130. There is a mild to moderate effusion. Tenderness along the medial and lateral joint lines. Positive medial Geraldine's. Positive lateral Geraldine's. Patellar crepitus. Ligaments stable. Hip rotation without pain. Distal neurovascular exam intact. RADIOGRAPHS: Radiographs of the right knee revealed osteoarthritic changes. MRI right knee revealed abnormal signal of the medial meniscus as well as a moderate effusion and synovitis. IMPRESSION: 1. Internal derangement of right knee with meniscal tear. 2. Right knee synovitis. 3. Hypothyroidism. PLAN: Right knee arthroscopy with partial medial meniscectomy, chondroplasty, partial synovectomy and debridement. Surgery scheduled for 12/02/2021. MMODL / IJN: [id number] /
[2021-12-02] MEDS ORDERED: LIDOCAINE 1% (10MG/ML) FOR IV START INTRADERMA PRN (06:06)
[2021-12-02] MEDS ORDERED: DEXAMETHASONE SOD PHOSPHATE 4 MG/ML 1 ML VIAL IV ONE (06:06)
[2021-12-02] MEDS ORDERED: ONDANSETRON 4 MG/2 ML VIAL IVP ONE ×2 (06:06→06:40)
[2021-12-02] MEDS ORDERED: MIDAZOLAM 2 MG/2 ML VIAL IV PRN (06:06)
[2021-12-02] MEDS ORDERED: LACTATED RINGERS 1,000 ML IV SCH (06:06)
[2021-12-02] MEDS ORDERED: DEXAMETHASONE SOD PHOSPHATE 4 MG/ML 1 ML VIAL IVP ONE (06:40)
[2021-12-02] MEDS ORDERED: fentaNYL (PF) 50 MCG/ML 2 ML AMP ONE (06:53)
[2021-12-02] MEDS ORDERED: PROPOFOL 10 MG/ML 20 ML VIAL IV ONE (06:53)
[2021-12-02] MEDS ORDERED: LIDOCAINE 1% INJ 10MG/ML (20 ML MDV) ONE (06:53)
[2021-12-02] MEDS ORDERED: HYDROmorphone 0.5 MG/0.5 ML SYRINGE IVP PRN (07:00)
[2021-12-02] MEDS ORDERED: BUPIVACAINE (PF) 0.25% 30 ML VIAL SQ ONE (07:21)
--- NOTE | 2021-12-02 07:44 | P.OP ---
Date of Procedure: 12/02/21 Preoperative Diagnosis: Internal derangement right knee Postoperative Diagnosis: 1. Tear medial lateral meniscus right knee 2. Grade 2 chondromalacia medial femoral condyle right knee 3. 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 Reactive synovitis medial, lateral and suprapatellar compartments right knee Procedure(s) Performed: 1. Arthroscopic partial medial and lateral meniscectomy right knee 2. Arthroscopic chondroplasty medial femoral condyle right knee 3. Arthroscopic partial synovectomy medial, lateral and suprapatellar compartments right knee Anesthesia: WILMERA, local Surgeon: Doron Canada Estimated Blood Loss (ml): 7 Pathology: none sent Condition: stable Disposition: PACU Indications for Procedure: 71-year-old patient seen with progressive right knee pain. After treatment options were discussed, she elected to proceed with arthroscopy. Operative Findings: see description of procedure Description of Procedure: Patient was taken to the operative suite. Patient underwent a general anesthetic by the department of anesthesia. Patient was given preoperative antibiotics. The right lower extremity was placed in a well-padded arthroscopic leg samano. The right leg was prepped and draped in the normal sterile orthopedic fashion. A lateral parapatellar and suprapatellar incision was made. Trochars were inserted. Arthroscopy was initiated. Suprapatellar pouch revealed diffuse thick reactive synovitis. The patellofemoral joint appeared to articulate congruently. There was grade 3/4 chondromalacia of the patella and grade 4 chondromalacia of the femoral sulcus with a large area of exposed bone The scope was guided into the medial gutter. no loose bodies or plica were identified.The scope was then guided into the medial compartment. A medial parapatellar incision was made. Trocar inserted followed by probe. There was a radial tear involving the posterior horn medial meniscus. There were grade 2 chondromalacia changes of medial femoral condyle with some osteochondral flap tears present. There was thick reactive synovitis anteriorly. I performed a partial medial meniscectomy. I performed a chondroplasty of the medial femoral condyle. I performed a partial synovectomy. The residual meniscus was stable. The residual osteochondral surface was stable. There was good decompression of the synovitis. Scope and probe were then guided into the intercondylar notch. Cruciates were identified, probed and found to be stable. The scope and probe were then guided into lateral compartment. There was a radial tear of the mid body and posterior horn lateral meniscus. There were grade 1 chondromalacia lateral compartment with no tears. There was thick reactive synovitis anteriorly. I performed a partial lateral meniscectomy. I performed a partial synovectomy. The residual meniscus was stable. There was good decompression of the synovitis.The scope was in guided back into the suprapatellar compartment. I introduced a motorized shaver into the super patellar compartment. I debrided some piecemeal fragments of meniscus I encountered. I performed a partial synovectomy. Shaver was now removed. There was good decompression of synoviti s. I took one more look around the entire knee, no residual debris. Instruments were now removed from the joint. The joint was infiltrated with .25% Marcaine. Steri-Strips were applied to the portal sites. Sterile dressings were applied. The patient was placed into a NOEMI hose. No tourniquet was utilized. The patient was awakened, transferred to a bed and taken to recovery stable satisfactory condition.
[2021-12-02 07:46] VITALS: TEMP 97.8
[2021-12-02] MEDS ORDERED: KETOROLAC 15 MG/ML 1 ML VIAL IVP ONE (08:00)
[2021-12-02 08:34] VITALS: RESP 20
[2021-12-02] MEDS ORDERED: traMADol 50 MG TAB ONE (08:38)
[2021-12-02] MEDS ORDERED: traMADol 50 MG TAB PO ONE (08:39)
[2021-12-02 09:17] VITALS: BP 140/64; PULSE 71
== END 2021-12-02 09:44 | disposition home or self-care (01) ==
LOC: OR 05:41
PROVIDERS: ATTEND Orthopaedic Surgery
DX: M23.203 Derangement of unspecified medial meniscus due to old tear or injury, right knee (principal); M23.200 Derangement of unspecified lateral meniscus due to old tear or injury, right knee; M94.261 Chondromalacia, right knee; M65.861 Other synovitis and tenosynovitis, right lower leg; E03.9 Hypothyroidism, unspecified; Z96.643 Presence of artificial hip joint, bilateral
CPT/HCPCS: 29880; J1100; J2405; J0690; J2001; J3010; J1885; J2704; J1170

== ENCOUNTER 2023-03-31 12:42 | Emergency (ER) | payer MEDICARE ==
[2023-03-31] MEDS ORDERED: HYDROmorphone 1 MG/ML 1 ML SYRINGE IVP STA (12:47)
[2023-03-31] MEDS ORDERED: KETOROLAC 15 MG/ML 1 ML VIAL IVP STA (12:47)
[2023-03-31 12:50] VITALS: TEMP 97
[2023-03-31] MEDS ORDERED: PROPOFOL 10 MG/ML 20 ML VIAL IV ONE (12:53)
--- NOTE | 2023-03-31 12:53 | ED ---
General Adult HPI - General Stated complaint: Hip injury Time Seen by Provider: 03/31/23 12:43 Source: patient, RN notes reviewed, old records reviewed Limitations: no limitations - History of Present Illness Initial comments: 72-year-old female presenting with severe right hip pain. Patient has prior history of bilateral hip replacements and has had this many as 5 dislocations to the right hip. Patient states she had put her leg up on a chair to tie her shoe and felt a popping sensation followed by severe pain. She was brought in by ambulance with shortening and internal rotation of the right hip. There is no other injury reported. Patient states she takes a thyroid medication daily with no other chronic medical conditions. - Related Data Home Medications Medication Instructions Recorded Confirmed Donepezil HCl [Aricept] 10 mg PO DAILY 03/31/23 03/31/23 Levothyroxine Sodium [Synthroid] 50 mcg PO DAILY 03/31/23 03/31/23 Multivitamins, Thera [Multivitamin 1 tab PO DAILY 03/31/23 03/31/23 (formulary)] Previous Rx's Medication Instructions Recorded HYDROcodone/APAP 5-325MG [Vonore 1 tab PO Q6HR PRN #12 tab 03/31/23 5-325] Allergies Allergy/AdvReac Type Severity Reaction Status Date / Time No Known Allergies Allergy Verified 03/31/23 14:15 Review of Systems ROS Statement: Those systems with pertinent positive or pertinent negative responses have been documented in the HPI. ROS Other: All systems not noted in ROS Statement are negative. Past Medical History Past Medical History: Memory Impairment, Thyroid Disorder Additional Past Medical History / Comment(s): Congential Hip Dysplasia. Short term memory problems. Dislocated right hip X4 since replacement. History of Any Multi-Drug Resistant Organisms: None Reported Past Surgical History: Joint Replacement Additional Past Surgical History / Comment(s): Partial thyroidectomy, bilateral hip replacements. Past Anesthesia/Blood Transfusion Reactions: No Reported Reaction Past Psychological History: No Psychological Hx Reported Smoking Status: Never smoker Past Alcohol Use History: Rare Past Drug Use History: None Reported - Past Family History Sister(s) Family Medical History: Cancer Additional Family Medical History / Comment(s): BOTH SISTERS HAD BREAST CANCER. Brother(s) Family Medical History: Cancer Additional Family Medical History / Comment(s): LUNG CANCER. General Exam Limitations: no limitations General appearance: alert, in distress Head exam: Present: atraumatic, normocephalic Eye exam: Present: normal appearance, PERRL ENT exam: Present: normal exam Neck exam: Present: normal inspection. Absent: tenderness, meningismus Respiratory exam: Present: normal lung sounds bilaterally. Absent: respiratory distress, wheezes Cardiovascular Exam: Present: regular rate, normal rhythm GI/Abdominal exam: Present: soft. Absent: distended, tenderness Extremities exam: Present: other (Shortening and internal rotation of the right lower extremity, extremity is warm with distal pulses intact.) Neurological exam: Present: alert, oriented X3, CN II-XII intact. Absent: motor sensory deficit Psychiatric exam: Present: anxious Skin exam: Present: warm, dry, intact Course Vital Signs 03/31/23 03/31/23 03/31/23 12:47 13:36 13:41 Temperature 97 F L Pulse Rate 85 75 75 Respiratory 18 18 16 Rate Blood Pressure 141/79 143/85 142/85 O2 Sat by Pulse 100 99 Oximetry 03/31/23 03/31/23 03/31/23 13:45 13:46 13:51 Temperature Pulse Rate 78 77 78 Respiratory 14 14 14 Rate Blood Pressure 141/75 122/66 125/65 O2 Sat by Pulse Oximetry 03/31/23 03/31/23 13:56 14:11 Temperature Pulse Rate 78 Respiratory 16 Rate Blood Pressure 122/66 127/72 O2 Sat by Pulse 99 Oximetry Procedures - Orthopedic Joint Reduction Joint #1 Consent Obtained: written consent Side: right Joint Reduction Location: hip Analgesia: procedural sedation Technique Used: traction/counter-traction Post-Reduction Neuro Exam: intact Post-Reduction Vascular Exam: intact Post Reduction X-Ray Obtained: Yes Post Reduction X-Ray Results: reduced Splint Applied: Yes (KNEE immobilizer) Patient Tolerated Procedure: well - Procedural Sedation *Procedural Sedation Start Time: 13:36 *Procedural Sedation Stop Time: 13:56 *Indications: fracture/dislocation reduction *Previous Adverse Reaction to Anesthesia/Sedation?: No * Testing Complete?: No Reason Test Not Complete:: Post-menopausal *ASA Class: II *Mallampati Airway Score: 2 *Time of Last PO Intake: 09:00 Preparation: youth nutritional monitor applied, pulse oximeter, capnometry used, supplemental O2 applied, suction/airway equipment at bedside, IV secured IV Propofol Dose (mgs): 130 Complications: none Interventions: oxygen applied Patient Tolerated Procedure: well Medical Decision Making - Medical Decision Making Was pt. sent in by a medical professional or institution (IBETH Osorio, MANAGER BABY, urgent care, hospital, or alf...) When possible be specific @ -No Did you speak to anyone other than the patient for history (EMS, parent, family, police, friend...)? What history was obtained from this source @ -No Did you review nursing and triage notes (agree or disagree)? Why? @ -I reviewed and agree with nursing and triage notes Were old charts reviewed (outside hosp., previous admission, EMS record, old EKG, old radiological studies, urgent care reports/EKG's, alf records)? Report findings @Reviewed previous sedation records for previous hip dislocations Differential Diagnosis (chest pain, altered mental status, abdominal pain women, abdominal pain men, vaginal bleeding, weakness, fever, dyspnea, syncope, headache, dizziness, GI bleed, back pain, seizure, CVA, palpatations, mental health, musculoskeletal)? @ -[Hip fracture, pelvic fracture, hip dislocation EKG interpreted by me (3pts min.). @ -As above X-rays interpreted by me (1pt min.). @X-rays performed prior to reduction reveal a posterior dislocation of the right prosthetic hip. Postreduction films revealed satisfactory reduction CT interpreted by me (1pt min.). @ -None done U/S interpreted by me (1pt. min.). @ -None done What testing was considered but not performed or refused? (CT, X-rays, U/S, labs)? Why? @ -None What meds were considered but not given or refused? Why? @ -None Did you discuss the management of the patient with other professionals (professionals i.e. IBETH Osorio, MANAGER BABY, lab, RT, psych nurse, director of social work, dental service chief, teacher, collections officer, case mgr)? Give summary @ -No Was smoking cessation discussed for >3mins.? @ -No Was critical care preformed (if so, how long)? @ -No Were there social determinants of health that impacted care today? How? (Homelessness, low income, unemployed, alcoholism, drug addiction, t ransportation, low edu. Level, literacy, decrease access to med. care, senior care, rehab)? @ -No Was there de-escalation of care discussed even if they declined (Discuss DNR or withdrawal of care, Hospice)? DNR status @ -No What co-morbidities impacted this encounter? (DM, HTN, Smoking, COPD, CAD, Cancer, CVA, ARF, Chemo, Hep., AIDS, mental health diagnosis, sleep apnea, morbid obesity)? @Prior hip dislocation, prosthetic hip Was patient admitted / discharged? Hospital course, mention meds given and route, prescriptions, significant lab abnormalities, going to OR and other pertinent info. @72-year-old female with prior hip dislocation presents with history and physi tyler exam suggestive of hip dislocation, x-ray confirms dislocation. The patient is able to sign consent for procedural sedation and hip reduction. A total of 130 mg of propofol was used for sedation first attempt was quite difficult, secondary attempt was successful in reducing the hip. The patient tolerated the procedure well. Pain was significantly improved. She was placed in a knee immobilizer and will follow closely with her orthopedic surgeon. Undiagnosed new problem with uncertain prognosis? @ -No Drug Therapy requiring intensive monitoring for toxicity (Heparin, Nitro, Insulin, Cardizem)? @ -No Were any procedures done? @ -Yes, procedural sedation, reduction of right hip dislocation Diagnosis/symptom? @ -Right hip dislocation Acute, or Chronic, or Acute on Chronic? @ -[Acute Uncomplicated (without systemic symptoms) or Complicated (systemic symptoms)? @ -Complicated Side effects of treatment? @ -No Exacerbation, Progression, or Severe Exacerbation? @ -No Poses a threat to life or bodily function? How? (Chest pain, [place], [place], pneumonia, PE, COPD, DKA, ARF, appy, cholecystitis, CVA, Diverticulitis, Homicidal, Suicidal, threat to staff... and all critical care pts) @ Yes, prolonged dislocation, effects of sedation. Disposition Clinical Impression: Posterior dislocation of hip, Dislocation of hip joint prosthesis Disposition: HOME SELF-CARE Condition: Fair Instructions (If sedation given, give patient instructions): Hip Dislocation (ED) Additional Instructions: Please follow up with your orthopedic surgeon. Please do not cross her legs, please do not bend at the hip past 90. Sleep with your toes and knee caps towards the ceiling. Prescriptions: HYDROcodone/APAP 5-325MG [Vonore 5-325] 1 tab PO Q6HR PRN #12 tab PRN Reason: Pain Is patient prescribed a controlled substance at d/c from ED?: No Referrals: None,Stated [REFERRING] - 1-2 days Catalino Hinds MD [REFERRING] - 1-2 days Time of Disposition: 14:09
[2023-03-31] MEDS ORDERED: SODIUM CHLORIDE 0.9% 1,000 ML IV ONE (12:54)
--- NOTE | 2023-03-31 13:16 | XR ---
EXAMINATION TYPE: XR Hip Limited RT DATE OF EXAM: 03/31/2023 COMPARISON: NONE HISTORY: Pain TECHNIQUE: 2 views submitted FINDINGS: There is dislocation of the right hip likely posteriorly. The femoral component of the prosthesis lie s outside the acetabular component. Diffuse osteopenia. No definite acute fracture. IMPRESSION: 1. There is dislocation of the right femoral component prostheses relative to the acetabular componen t likely in a posterior direction. Correlate clinically.
--- NOTE | 2023-03-31 14:20 | XR ---
EXAMINATION TYPE: XR Hip Limited RT DATE OF EXAM: 03/31/2023 COMPARISON: 03/31/2023 earlier exam HISTORY: Dislocated prosthesis TECHNIQUE: AP right hip FINDINGS: Femoral head articulates with the acetabulum. Previous dislocation has been reduced in the AP projection. No fractures evident. IMPRESSION: 1. Reduction of previous dislocation of the prosthesis.
[2023-03-31 15:05] VITALS: BP 124/70; PULSE 75; RESP 14
== END 2023-03-31 15:19 | disposition home or self-care (01) ==
LOC: EC 12:42
DX: S73.01 Posterior subluxation and dislocation of hip (principal); E07.9 Disorder of thyroid, unspecified; Z79.890 Hormone replacement therapy; X58.XXXA Exposure to other specified factors, initial encounter; Y79.2 Prosthetic and other implants, materials and accessory orthopedic devices associated with adverse incidents
CPT/HCPCS: 73501; 99283; 96374; 96375; 96361; 99152; 27250; J1170; J1885; J2704

== ENCOUNTER → 2023-07-04 | Outpatient (CLI) | payer MEDICARE ==
--- NOTE | 2023-07-05 18:31 | MM ---
Reason for Exam: Screening (asymptomatic). Last mammogram was performed 2 year(s) and 1 month(s) ago. Patient History: Menarche at age 11. Patient has no children. Postmenopausal. Patient used Estrogen for 5 years. Patient used Progesterone for 5 years. Maternal aunt had breast cancer, age 70. Sister (Marvandanaa) had breast cancer, age 40. Sister had breast cancer. Risk Values: Venus 5 year model risk: 6.1%. NCI Lifetime model risk: 12.7%. Prior Study Comparison: 05/02/2018 Bilateral Screening Mammogram, [facility]. 05/03/2019 Bilateral Screening Mammogram, [facility]. 06/07/2021 Bilateral Screening Mammogram, [facility]. Tissue Density: There are scattered fibroglandular densities. Findings: Analyzed By CAD. Pattern appears symmetrical and stable. No significant interval change. No suspicious groups of microcalcifications, spiculated or lobular masses, architectural distortion or other secondary signs of malignancy are mammographically apparent. Overall Assessment: Benign, BI-RAD 2 Management: Screening Mammogram of both breasts in 1 year. A negative mammogram report should not preclude additional follow up of suspicious palpable abnormalities. Patient should continue monthly self breast exam. A clinical breast exam by your physician is recommended on an annual basis and results should be correlated with mammographic findings. Electronically signed and approved by: Damir Cagle D.O. Radiologis
== END | disposition home or self-care (01) ==
LOC: RADMAMWWP 09:43
PROVIDERS: ATTEND Family Medicine
DX: Z12.31 Encounter for screening mammogram for malignant neoplasm of breast (principal); Z78.0 Asymptomatic menopausal state; Z80.3 Family history of malignant neoplasm of breast
CPT/HCPCS: 77067

== ENCOUNTER → 2024-08-21 | Outpatient (CLI) | payer MEDICARE ==
--- NOTE | 2024-08-26 13:16 | MM ---
Reason for Exam: Screening (asymptomatic). Last mammogram was performed 1 year(s) and 2 month(s) ago. Patient History: Menarche at age 11. Patient has no children. Postmenopausal. Patient used Estrogen for 5 years. Patient used Progesterone for 5 years. Sister (Purvi) had breast cancer, age 40. Risk Values: Venus 5 year model risk: 3.5%. NCI Lifetime model risk: 7.0%. Prior Study Comparison: 05/03/2019 Bilateral Screening Mammogram, [facility]. 06/07/2021 Bilateral Screening Mammogram, [facility]. 07/04/2023 Bilateral MG screening mammo w CAD, [facility]. Tissue Density: There are scattered areas of fibroglandular density. Findings: Analyzed By CAD. Right breast: There is no suspicious group of microcalcifications or new suspicious mass. Left breast: There is no suspicious group of microcalcifications or new suspicious mass. Overall Assessment: Negative, BI-RAD 1 Management: Screening Mammogram of both breasts in [address] [facility] will attempt to contact patient to return for supplemental views and ultrasound if indicated. Patient should continue monthly self-breast exams. A clinical breast exam by your physician is recommended on an annual basis. This exam should not preclude additional follow-up of suspicious palpable abnormalities. Note on Venus scores and lifetime risk: 1. A Venus score greater than 3% is considered moderate risk. If this is the case, consider specialist referral to assess eligibility for a risk reducing agent. 2. If overall lifetime risk for the development of breast cancer is 20% or higher, the patient may qualify for future screening with alternating mammogram and breast MRI. [facility], , 08/26/2024 1:13 PM. Electronically signed and approved by: Miles Cordova DO
== END | disposition home or self-care (01) ==
LOC: RADMAMWWP 07:18
PROVIDERS: ATTEND Family Medicine
DX: Z12.31 Encounter for screening mammogram for malignant neoplasm of breast (principal); Z78.0 Asymptomatic menopausal state; Z80.3 Family history of malignant neoplasm of breast; R92.323 Mammographic fibroglandular density, bilateral breasts
CPT/HCPCS: 77063; 77067